=== PATIENT | male | born 1990 | race Caucasian/White ===

== ENCOUNTER → 2018-03-12 | Outpatient (CLI) | payer OTHER | LOC: M RAD 07:19 | DX: J34.2 Deviated nasal septum (principal) | CPT/HCPCS: 70486 ==

== ENCOUNTER 2018-05-25 06:54 | Day surgery (SDC) | payer OTHER ==
[~2018-05-25] VITALS: Ht 180.3 cm; Wt 96.2 kg
[~2018-05-25 06:54] MED LIST: CLAR10CA3 PO; LIDOCAINE W/EPINEPHRINE 1% 20ML VIAL As Ordered ONE; METHYLENE BLUE 0.5% (5MG/ML) 10 ML AMP (PROVAYBLUE)(Q9968 PER 1MG) As Ordered ONE; OXYMETAZOLINE NASAL SPRAY (AFRIN) As Ordered ONE; SODIUM CHLORIDE 0.9% NASAL GEL 15GM (AYR) As Ordered ONE; TESTPOW5 SUBD
[2018-05-25] MEDS ORDERED: LIDOCAINE 2% INJ 100 MG/5 ML SDV (FOR ANES.) As Ordered ONE (08:01)
[2018-05-25] MEDS ORDERED: MIDAZOLAM INJ 2 MG/2 ML VIAL (J2250) As Ordered ONE (08:01)
[2018-05-25] MEDS ORDERED: PROPOFOL 200 MG/20 ML VIAL As Ordered ONE (08:01)
[2018-05-25] MEDS ORDERED: fentaNYL 100 MCG/2 ML INJECTION (J3010) As Ordered ONE ×2 (08:02→08:52)
[2018-05-25] MEDS ORDERED: KETAMINE HCL 200 MG/20 ML VIAL As Ordered ONE (08:25)
[2018-05-25] MEDS ORDERED: OXYMETAZOLINE NASAL SPRAY (AFRIN) As Ordered ONE ×2 (08:33→08:40)
[2018-05-25] MEDS ORDERED: dexameTHASONE 4 MG/ML 1ML VIAL (J1100) As Ordered ONE (08:42)
[2018-05-25] MEDS ORDERED: ONDANSETRON 4MG/2ML VIAL (J2405) As Ordered ONE (08:42)
[2018-05-25] MEDS ORDERED: FLUMAZENIL 0.5 MG/5 ML VIAL As Ordered ONE (09:10)
[2018-05-25] MEDS ORDERED: PERCOCET 5MG/325MG TAB As Ordered ONE (09:28)
[2018-05-25] MEDS ORDERED: PERCOCET 5MG/325MG TAB PO PRN (09:45)
[2018-05-25] MEDS ORDERED: LR 1,000 ML IV SCH (09:45)
[2018-05-25] MEDS ORDERED: fentaNYL 100 MCG/2 ML INJECTION (J3010) IV PRN (09:45)
[2018-05-25] MEDS ORDERED: ONDANSETRON 4MG/2ML VIAL (J2405) IV PRN (09:45)
[2018-05-25 11:47] VITALS: BP 115/52
--- NOTE | 2018-05-25 22:26 | RO ---
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 OPERATION PERFORMED: 1. Bilateral Latera graft placement for nasal valve insufficiency. 2. Bilateral inferior turbinoplasties with the Reflex 45 Coblation wand and unit. SURGEON: Mariano Patterson Jr, MD ANESTHESIA: Monitored anesthesia care (MAC) local. INDICATIONS FOR PROCEDURE: Patient with significant nasal valve collapse after having previous septoplasty, rhinoplasty in [place] and turbinoplasty DESCRIPTION OF PROCEDURE: After a time-out had been performed, the patient was brought into the operating room and then preoperatively the area of maximal nasal valve collapse was identified and marked in the preoperative area. Utilizing this when he came in, the radix jail point between that and the canthus were marked on the left and right nasal sides, as well as the linear content of the vestibular portion. This was marked with a marking device. Once this was done, the patient was sedated and utilizing a 27 1-1/2-gauge needle with 1% lidocaine, 1:100,000 epinephrine, the right alar vestibular lining was injected and then followed up into the site of the line of the Latera implant. This was done on the left and right sides. Once this was done, attention was then drawn to injecting a mL into each inferior turbinate with a 27 gauge needle and the Reflex 45 wand with nasal saline gel was placed. The patient then had the Coblator Reflex 45 wand which was set at 4 coblate and 2 coag, two passes were placed in the inferior turbinates, left in for approximately 2-3 seconds and then for about 1/2 second for coag. Once this was done, the Latera delivery system was loaded for the right side, the skin retractor was utilized, the beveled end was used in the mid point near the inferior alar rim vestibular side and brought up to the superior portion of the upper lateral cartilage and then the bevel turned to dissect over the mucoperichondrium and then the mucoperiosteum up to the level of the previous indentation. The device was then deployed and delivered and then fixated, and after tenting showed that this was in excellent position, the patient then had the opposite side done in a similar fashion. This was deployed in the vestibular skin going to the lateral aspect of the upper lateral cartilage along the mucoperiosteum of the bone and deployed. The patient tolerated this very nicely. There was excellent tenting, and it was tenting right at the level that was expected. At this point, the patient could breathe much better after sedation was released and there were no problems. No complications. The patient was awakened and could breathe. There was very minimal collapse of the internal nasal valve on both sides. There were no problems. No complications. Estimated blood loss was approximately 1 mL. MTDD
== END 2018-05-25 11:57 | disposition home or self-care (01) ==
LOC: M SDC 06:54
PROVIDERS: ATTEND Otolaryngology
DX: J34.3 Hypertrophy of nasal turbinates (principal); R09.81 Nasal congestion; E29.1 Testicular hypofunction; Z88.2 Allergy status to sulfonamides; Z79.899 Other long term (current) drug therapy
CPT/HCPCS: 30140; 30465; J1100; J2250; J2405; J3010; L8699; Q9968